=== PATIENT | male | born 1995 | race Caucasian/White ===

== ENCOUNTER 2021-04-09 18:56 | Emergency (ER) | payer BC, SELFPAY ==
[2021-04-09 19:24] VITALS: BP 155/85; PULSE 96; RESP 16; TEMP 37.2; O2SAT 99
--- NOTE | 2021-04-09 19:42 | ED.MALEGU ---
HPI - Male Genitourinary General Chief complaint: Urogenital-Male Stated complaint: UTI Time Seen by Provider: 04/09/21 19:42 Source: patient Mode of arrival: ambulatory Limitations: no limitations History of Present Illness HPI Narrative: Josiah Lindsey is a 25 yo male who started having urinary frequency yesterday and has had to go urinate multiple times since then denies any chance of exposure to STD discussed because patient is overweight that he should get some blood work done at his primary care physician's office because sometimes increased blood sugar can also cause urinary frequency but will start on antibiotic and treat for 3 to 5 days of dysuria Related Data Allergies Allergy/AdvReac Type Severity Reaction Status Date / Time No Known Allergies Allergy Unverified 04/09/21 19:21 Review of Systems Review of Systems: CONSTITUTIONAL: Denies fever, chills, sweats. EYES: Denies visual changes, redness, discharge. ENT: Denies rhinorrhea, congestion, sore throat, otalgia. CARDIOVASCULAR: Denies chest pain, palpitations, edema. RESPIRATORY: Denies dyspnea, wheezing, cough GASTROINTESTINAL: Denies abdominal pain, nausea, vomiting, diarrhea. GENITOURINARY: Denies dysuria, hematuria, abnormal discharge urinary frequency SKIN: Denies rash or itching. NEUROLOGIC: Denies numbness, or focal weakness. PSYCHIATRIC: Denies anxiety or depression. [facility] Family History Family History Other Diabetes mellitus Family history of coronary artery disease Family history of malignant neoplasm of cervix Social History Social History Smoking status: Never smoker Alcohol intake: never Comments At time of signature, I agree with nursing past medical, surgical, social and family history. There is no relevant family history pertinent to the presenting complaint. Exam Narrative: GENERAL: This is a well-nourished, well-developed patient, in mild distress. Patient is morbidly obese HEAD: normocephalic, atraumatic. EYES: Sclera clear/white. Vision is grossly intact. EARS: External ears normal, . Hearing grossly intact. NOSE: External nose normal without nasal discharge, nares without redness, no rhinorrhea. THROAT: Mucous membranes moist NECK: Neck supple, CARDIOVASCULAR: Regular rate and rhythm without murmurs, gallops, or rubs. RESPIRATORY: Clear to auscultation. Breath sounds equal bilaterally. No wheezes, rales, or rhonchi. GASTROINTESTINAL: Abdomen soft, SKIN: warm, intact with no suspicious lesions or rash, good texture and turgor. NEURO: awake, alert, and oriented to person, place and time. There were no obvious focal neurologic abnormalities. Steady gait EXTREMITIES: Normal range of motion. Course Course Emergency Course: Patient comes to [facility] with complaints of urinary frequency UA shows only 2+ blood but denies any pain Started on Cipro 500 mg 1 twice daily x5 days. Patient is to follow-up with primary care physician if antibiotic does not improve symptoms and if develops pain to go to the ER Vital Signs Vital signs: Vital Signs Temperature 98.9 F 04/09/21 19:24 Pulse Rate 96 04/09/21 19:24 Respiratory Rate 16 04/09/21 19:24 Blood Pressure 155/85 H 04/09/21 19:24 Pulse Oximetry 99 04/09/21 19:24 Temperature 98.9 F 04/09/21 19:24 Pulse Rate 96 04/09/21 19:24 Respiratory Rate 16 04/09/21 19:24 Blood Pressure 155/85 H 04/09/21 19:24 Pulse Oximetry 99 04/09/21 19:24 MDM - Male Genitourinary Differential Diagnosis Differential diagnosis: Likely urinary tract infection, urethritis, prostatitis, acute retention of urine and other Lab Data Labs: Urine Glucose Negative Reference Range: Negative Urine Bilirubin Negative Reference Range
== END 2021-04-09 19:50 | disposition home or self-care (01) ==
PROVIDERS: Emergency Provider Nurse Practitioner
DX: R35.0 Frequency of micturition (principal)
CPT/HCPCS: 81003; 99213; G0463

== ENCOUNTER 2021-05-31 22:45 | Emergency (ER) | payer BC, SELFPAY ==
[2021-05-31 22:47] VITALS: BP 173/105; PULSE 116; RESP 19; TEMP 36.5; O2SAT 94
--- NOTE | 2021-06-01 00:21 | ED.GENADULT ---
HPI - General Adult General Chief complaint: Upper Respiratory Infection Stated complaint: have covid/not getting better Time Seen by Provider: 06/01/21 00:16 History of Present Illness HPI narrative: Patient is a 25-year-old gentleman who presents the emergency department with chief complaint of cough. Patient reports he was diagnosed with COVID-19 reports he has had some purulent drainage out of his tear ducts patient states that he has generalized malaise and has been going on for about 4 days and feels as though he should be starting to feel better. Patient reports he has no other medical conditions. Patient denies hypoxia denies change in mental status. Related Data Allergies Allergy/AdvReac Type Severity Reaction Status Date / Time No Known Allergies Allergy Verified 05/31/21 22:46 Review of Systems Review of Systems: A 10 system review of systems was completed on the patient and is negative except for what is stated in the HPI. Nursing and ancillary documentation was reviewed. PMFSH Past Medical History Medical History Acute pharyngitis, unspecified BMI 45.0-49.9, adult Dietary counseling and surveillance (05/04/16) Ingrown toenail of left foot Family History Family History Other Diabetes mellitus Family history of coronary artery disease Family history of malignant neoplasm of cervix Social History Social History Smoking status: Never smoker Alcohol intake: never Exam Narrative: GENERAL: Well-appearing, well-nourished, and in no acute distress. HEAD: Normocephalic, atraumatic. EYES: PERRLA and EOMI. there is purulent discharge from the tear ducts ENT: Nares clear, no rhinorrhea or epistaxis. Mucous membranes moist. NECK: Supple. CHEST: Clear to auscultation. No respiratory distress. HEART: Regular rate and rhythm. No murmur heard. Normal peripheral pulses. ABDOMEN: Soft, nontender, nondistended, normal active bowel sounds. EXTREMITIES: Normal range of motion. No edema. SKIN: Warm, dry, no rash. NEURO: No focal deficits. Alert and oriented x3. PSYCH: Normal mood and affect. Course Vital Signs Vital signs: Vital Signs Temperature 36.5 C 05/31/21 22:47 Pulse Rate 116 H 05/31/21 22:47 Respiratory Rate 19 05/31/21 22:47 Blood Pressure 173/105 H 05/31/21 22:47 Pulse Oximetry 94 05/31/21 22:47 Temperature 36.5 C 05/31/21 22:47 Pulse Rate 116 H 05/31/21 22:47 Respiratory Rate 19 05/31/21 22:47 Blood Pressure 173/105 H 05/31/21 22:47 Pulse Oximetry 97 06/01/21 00:29 Medical Decision Making Vital Signs Vital Signs: Vital Signs Temperature 36.5 C 05/31/21 22:47 Pulse Rate 116 H 05/31/21 22:47 Respiratory Rate 05/31/21 22:47 Blood Pressure 173/105 H 05/31/21 22:47 Pulse Oximetry 94 05/31/21 22:47 Temperature 36.5 C 05/31/21 22:47 Pulse Rate 116 H 05/31/21 22:47 Respiratory Rate 05/31/21 22:47 Blood Pressure 173/105 H 05/31/21 22:47 Pulse Oximetry 97 06/01/21 00:29 Discharge Plan Discharge Clinical Impression: COVID-19 URI (upper respiratory infection) Qualifiers: URI type: unspecified viral URI Qualified Code(s): J06.9 - Acute upper respiratory infection, unspecified Conjunctivitis Qualifiers: Conjunctivitis type: unspecified Laterality: bilateral Qualified Code(s): H10.9 - Unspecified conjunctivitis Patient Disposition: Home, Self-Care Condition: Stable Instructions: Antibiotic Form, Conjunctivitis (ED), COVID-19 (Coronavirus Disease 2019) (ED) Prescriptions: New benzonatate 200 mg capsule 200 mg PO TID PRN (Reason: cough) Qty: 21 RF: 0 albuterol sulfate 90 mcg/actuation HFA aerosol inhaler 2 puff inhalation QID PRN (Reason: shortness of breath or wheezing) Qty: 8.5 RF: 0 gentamicin 0.3 %
[2021-06-01] MEDS: BENZONATATE 100 MG CAPSULE 200 MG PO (00:28)
[2021-06-01 00:29] VITALS: O2SAT 97
[2021-06-01 00:47] VITALS: BP 154/87; PULSE 101; RESP 18; O2SAT 99
== END 2021-06-01 00:48 | disposition home or self-care (01) ==
LOC: ANHED 06-01 00:30
PROVIDERS: Emergency Provider Emergency Medicine; PCP Family Medicine
DX: U07.1 COVID-19 (principal); J06.9 Acute upper respiratory infection, unspecified; H10.9 Unspecified conjunctivitis
CPT/HCPCS: 99283; A9270

== ENCOUNTER → 2021-06-11 12:09 | Outpatient (CLI) | payer BC, SELFPAY ==
--- NOTE | ~2021-06-11 | XR_ITS ---
EXAMINATION: XR chest 2V EXAM DATE: 06/11/2021 12:16 INDICATION: U07.1 - COVID-19 . TECHNIQUE: Frontal and lateral projections of the chest obtained and reviewed. There is no prior brad dy for comparison. FINDINGS: No confluent consolidation, pneumothorax or pleural effusion suspected. Cardiomediastinal s ilhouette is normal. There are no osseous abnormalities identified. IMPRESSION: No confluent consolidation. Reviewed, dictated and finalized at location B. PER MACHINE IMPRESSION: No confluent consolidation.
== END ==
PROVIDERS: PCP Family Medicine; Visit Provider Nurse Practitioner Family
DX: U07.1 COVID-19 (principal)
CPT/HCPCS: 71046